=== PATIENT | female | born 1955 | race Caucasian/White ===

== ENCOUNTER → 2023-12-16 08:19 | Outpatient (REF) | payer MEDICARE, OTHER, SELFPAY | LOC: HWWDC 08:19 | PROVIDERS: ATTENDING PHYSICIAN Physician Assistant Medical | DX: Z12.31 Encounter for screening mammogram for malignant neoplasm of breast (principal) | CPT/HCPCS: 77063; 77067 ==

== ENCOUNTER → 2025-04-08 08:00 | Outpatient (REF) | payer MEDICARE, OTHER, SELFPAY | LOC: HWWDC 08:00 | PROVIDERS: ATTENDING PHYSICIAN Physician Assistant Medical | DX: Z12.31 Encounter for screening mammogram for malignant neoplasm of breast (principal) | CPT/HCPCS: 77063; 77067 ==

== ENCOUNTER 2025-04-10 08:54 | Emergency (ER) | payer MEDICARE, OTHER, SELFPAY ==
[2025-04-10 09:00] VITALS: BP 155/98
--- NOTE | 2025-04-10 10:09 | ED.GENMED ---
History of Present Illness
General
Chief Complaint: Fall
Source: patient
Exam Limitations: none
Time Seen by Provider: 04/10/25 09:59
History of Present Illness
History of Present Illness:
69yo right hand dominant female with a history of insulin dependent diabetes presenting with her for evaluation after a fall around 8:30am. Patient was shopping in the grocery store when she slipped and fell forward striking the front of
her face. There was no loss of consciousness and she was able to ambulate after the fall. She sustained a lip laceration and a tooth injury during the fall. She also complains of left wrist pain. Unknown last Tdap. She does not take any blood
thinners.
Past History
Past History
ED Past Medical History: GERD, Hypercholesterolemia and Other (Idiopathic urticaria and angioedema )
ED Past Surgical History: Gynecological (Hysterectomy )
Social History
Tobacco: Non-smoker
Alcohol: None
Personal:
Living: with family
Phy Exam
General Physical Exam
General Presentation: well appearing and no apparent distress
General Skin: warm and dry
General Habitus: normal
General Mental: alert
ENT Exam
ENT Exam: normocephalic and other (Through and through lip laceration noted above upper hanna border extending to the inner lip mucosal surface. L frontal tooth is chipped. No exposed dentin or subluxation. )
Additional ENT: No cervical spine tenderness. No jaw tenderness or malocclusion.
Eye Exam
Eye Exam: PERRL and conjunctiva normal
Pulmonary Exam
Pulmonary Exam: lungs clear, no respiratory distress, no rales, chest non tender, no crackles, no rhonchi and no wheezing
Gastrointestinal Exam
Gastrointestinal Exam: non tender, soft and non distended
Neurological Exam
Neurological Exam: alert
[place] Coma Scale
Eye Opening: Spontaneous
Verbal Response: Oriented
Motor Response: Obeys Commands
GCS Total Score: 15
Musculoskeletal Exam
Musculoskeletal Exam: other (L wrist: No deformity or swelling noted. Mild tenderness at radial aspect of wrist. ROM intact. 2+ radial pulse.)
Skin Exam
Skin Exam: normal color and warm/dry
Psychiatric Exam
Psychiatric Exam: normal mood/affect
Course
Orders/Labs/Results
Orders:
Orders
04/10/25 09:04
EKG [Electrocardiogram (*1)] Urgent
Reason for Study: Bradycardia / Tachycardia
EKG- Treatment ONCE
04/10/25 09:45
Wrist, Left 3 Views CR [CR Wrist - Left Min 3 Views] Urgent
Comment:
Reason For Exam: fall
04/10/25 10:08
CT Cervical Spine W/o Iv Contr Urgent
Comment:
Reason For Exam: fall, head injury
CT Head W/o Iv Contrast Urgent
Comment:
Reason For Exam: fall, head injury
Lidocaine/Epinephrine/Tetracai [Let Topical Anesthetic Gel] 3 ml TOPICAL NOW STA
Tetanus/Diphth/Acelpertussis [Adacel] 0.5 ml IM .ONCE ONE
Vital Signs
Initial and Last Documented VS:
Initial Vital Signs
Temp Pulse Resp BP Pulse Ox
98.8 F 141 20 155/98 98
04/10/25 09:00 04/10/25 09:00 04/10/25 09:00 04/10/25 09:00 04/10/25 09:00
Last Documented Vital Signs
Temp Pulse Resp BP Pulse Ox
98.2 F 109 16 147/78 99
04/10/25 13:19 04/10/25 12:04 04/10/25 12:04 04/10/25 12:04 04/10/25 12:04
Procedures
Laceration Closure
Upper Lip:
Status of Wound: clean
Size of Wound in cm: 2.5
Description of Wound Edges: ragged
Preparation: cleaned with saline
Anesthesia: 1% Lidocaine with epi and Topical-LET
Revision/Debridement: routine- no revision
Wound exploration: explored to base- no FB
Type of Closure: layered closure
Skin Closure Material: 6-0 nylon and 5-0 vicryl
Number of sutures: 5
Additional information:
3 nylon sutures placed to outer skin. 2 Vicryl sutures placed to inner lip/mucosal surface
MDM/Problems Addressed
Differential Diagnosis Includes:
69yoF presenting after a mechanical fall. Slipped at the store and struck front of face. No LOC. HR 141 in triage. EKG obtained which shows sinus tachycardia with HR in the 120 range. She denies CP/SOB. Through and through upper lip laceration noted
on exam with L frontal tooth fracture. She c/o L wrist pain. No deformity or swelling noted. Differential diagnosis includes but is not limited to: laceration, closed head injury, fracture, intrcranial hemorrhage
Initial ED plan: Check CT head, CT cervical spine, and L wrist x-rays. Update Tdap and repair laceration.
*Pulse Oximetry
Patient hypoxic: no (99%)
*EKG
Interpreted by ED Provider?: Yes
EKG Intrepretation Date: 04/10/25
Heart Rate: 124
Rate: tachycardiac
Rhythm: sinus
[place]: normal axis
Interval: normal interval
QRS Pattern: normal QRS
Ischemia: no ischemia
*Critical Care Note
Total Time (30-74mins, 75-104mins- exclusive of procedures): Not Applicable
Update Note
Update Note:
CT head/cervical spine negative for acute findings. Left wrist x-rays are negative for fractures per my interpretation, formal radiology read pending. Lip laceration repaired as above. She was started on a course of clindamycin for prophylaxis
(PCN allergy). HR improved to the 100s. She is stable for discharge. Patient advised to eat dental soft diet for the next few days. She was able to make an appt with her dentist this afternoon for her dental fracture. Patient instructed to have
sutures removed in 5 days and return to the ED with any signs of infection. Patient discharged in stable condition.
ED Attending Note
-
Portions of this chart may have been created with voice recognition software.� Occasional wrong word or��sound alike� substitutions may have occurred due to the inherent limitations of voice recognition software.
Discharge Plan
Departure
Patient Disposition: Home (Routine Discharge)
Date of Disposition: 04/10/25
Time of Disposition: 12:50
Patient with high blood pressure during this ER visit?: Yes
Discharge Problem:
Laceration of lip, Dental injury, Ground-level fall, Left wrist pain
Instructions: Laceration Repair With Stitches (DC), Fractured Tooth (DC)
Prescriptions:
New
clindamycin HCl [Cleocin HCl] 300 mg capsule
300 mg PO Q6H 5 Days Qty: 20 0RF
No Action
simvastatin 20 MG tablet
40 mg PO HS
Zantac
150 mg PO DAILY
Zyrtec
10 mg PO DAILY
epinephrine [EpiPen] 0.3 MG/0.3/SYRINGE auto-injector
0.3 mg IM PRN PRN (Reason: allergic reaction) Qty: 2 0RF
diphenhydramine HCl [Banophen] 25 MG capsule
25 mg PO HSPRN PRN (Reason: itchy hives)
glimepiride 4 MG tablet
4 mg PO BID
prednisone 20 MG tablet
40 mg PO DAILY 5 Days 0RF
famotidine 20 MG tablet
20 mg PO BID Qty: 20 0RF
diphenhydramine HCl [Benadryl] 25 MG capsule
25 mg PO Q6 Qty: 30 0RF
Referrals:
Steffanie Corral PA-C [Family Provider, Family Practice]
Activity Restrictions/Additional Instructions:
Take antibiotics as prescribed. Eat a soft diet for the next few days. Avoid salty or spicy foods.
Sutures will need to be removed in 5 days.
Please follow-up with your dentist today and return to the ER with any signs of infection.
Interventions
Interventions:
*Risk Screen - Suicide Last Done: 04/10/25 13:19
*General Assessment Last Done: 04/10/25 09:00
*Neglect/Abuse Screening Last Done: 04/10/25 13:19
*ED- Fall Risk Assessment Last Done: 04/10/25 13:19
*ED COVID-19 Vaccine History Last Done: 04/10/25 09:00
*Nursing Disposition Last Done: 04/10/25 13:19
ED-Musculoskeletal Assessment Last Done: 04/10/25 09:52
ED- Neurological Assessment Last Done: 04/10/25 09:52
ED-Skin Assessment Last Done: 04/10/25 09:52
Discharge Date and Time
Discharge Date/Time: 04/10/25 13:20
Print Language: HONDURAN
[2025-04-10 10:36] VITALS: BMI 27.4
[2025-04-10] MEDS: LET TOPICAL ANESTHETIC GEL 3 ML TOPICAL (10:38)
[2025-04-10] MEDS: ADACEL 0.5 ML IM (10:38)
[2025-04-10 10:48] VITALS: BP 126/67
[2025-04-10 12:04] VITALS: BP 147/78
== END 2025-04-10 13:20 | disposition home or self-care (01) ==
LOC: EMR 08:54
PROVIDERS: EMERGENCY PHYSICIAN Emergency Medicine; FAMILY PHYSICIAN Physician Assistant Medical
DX: S01.511A Laceration without foreign body of lip, initial encounter (principal); S09.93XA Unspecified injury of face, initial encounter; M25.532 Pain in left wrist; W01.0XXA Fall on same level from slipping, tripping and stumbling without subsequent striking against object, initial encounter; Z23 Encounter for immunization; K21.9 Gastro-esophageal reflux disease without esophagitis; E78.00 Pure hypercholesterolemia, unspecified; E11.9 Type 2 diabetes mellitus without complications; Z79.4 Long term (current) use of insulin; Z90.710 Acquired absence of both cervix and uterus
CPT/HCPCS: 99284; 12011; 90471; 70450; 72125; 73110; 90715; 93005

== ENCOUNTER 2025-09-16 06:36 | Day surgery (SDC) | payer MEDICARE, OTHER, SELFPAY ==
[2025-09-16 08:26] LABS: Glucose - Point of Care 140 mg/dl (70-99)
== END 2025-09-16 11:00 | disposition home or self-care (01) ==
LOC: GI 06:36
PROVIDERS: ATTENDING PHYSICIAN Internal Medicine Gastroenterology
DX: Z12.11 Encounter for screening for malignant neoplasm of colon (principal); D12.0 Benign neoplasm of cecum; D12.3 Benign neoplasm of transverse colon; K63.5 Polyp of colon; K57.30 Diverticulosis of large intestine without perforation or abscess without bleeding; K64.8 Other hemorrhoids; Z86.0100 Personal history of colon polyps, unspecified
CPT/HCPCS: 45385; 45380; 82962; 88305